=== PATIENT | female | born 1980 | race Caucasian/White ===

== ENCOUNTER 2023-01-25 18:50 | Emergency (ER) | payer BC ==
[2023-01-25 19:12] VITALS: BP 99/62; PULSE 100; RESP 16; TEMP 97.8; BMI 26.7
[2023-01-25] MEDS ORDERED: ALBUTEROL SO4 2.5/IPRATROPIUM 0.5 INH SOL 3 ML VIAL.NEB. NEB ONE (19:14)
[2023-01-25] MEDS ORDERED: ALBUTEROL SO4 2.5/IPRATROPIUM 0.5 INH SOL 3 ML VIAL.NEB. NEB STA (19:19)
== END 2023-01-25 19:33 | disposition home or self-care (01) ==
LOC: FER 18:50
PROC: 3E0F7GC Introduction of Other Therapeutic Substance into Respiratory Tract, Via Natural or Artificial Opening (ICD-10-PCS; principal; 2023-01-25)
DX: R06.02 Shortness of breath (principal); J45.21 Mild intermittent asthma with (acute) exacerbation
CPT/HCPCS: 99283-25

== ENCOUNTER 2023-12-07 16:27 | Emergency (ER) | payer BC ==
[2023-12-07 16:50] VITALS: BP 100/62; PULSE 96; RESP 16; TEMP 98.6; BMI 30.1
[2023-12-07 17:20] LABS: HCG,QUALITATIVE URINE Negative
[2023-12-07] MEDS ORDERED: ACETAMINOPHEN INJECTION 100 ML IVPB ONE (17:54)
[2023-12-07] MEDS: SODIUM CHLORIDE 0.9% 500 ML INFUS.BAG IV ONE (18:48)
[2023-12-07] MEDS: ACETAMINOPHEN 1000 MG/100 ML BAG IVPB ONE (18:48)
[2023-12-07] MEDS ORDERED: KETOROLAC TROMETHAMINE 15 MG/ML VIAL ONE (19:07)
[2023-12-07 19:09] LABS: HEMATOCRIT 35.6 % (32.4-45.2); HEMOGLOBIN 11.4 G/dL (10.7-15.3); MCH 28.7 pg (25.7-33.7); MCHC 32.1 g/dl (32.0-36.0); MEAN CELL VOLUME 89.2 fl (80-96); MEAN PLT VOLUME 7.3 fl (7.5-11.1); PLATELET COUNT 480.8 10^3/uL (134-434); RBC 3.99 10^6/uL (3.60-5.2); RDW 14.8 % (11.6-15.6); WHITE BLOOD COUNT 8.3 10^3/uL (4.0-10.8)
[2023-12-07] MEDS: KETOROLAC TROMETHAMINE 15 MG/ML VIAL IVPUSH ONE (19:11)
[2023-12-07 19:19] LABS: INR 0.89 (0.83-1.09); PROTHROMBIN TIME (PATIENT) 10.2 SEC (9.7-13.0)
[2023-12-07 19:21] LABS: ACTIVATED PTT 29.3 SECONDS (25.2-36.5)
[2023-12-07 19:32] LABS: PLATELET ESTIMATE SLT INCREASE
[2023-12-07 20:27] LABS: ALBUMIN 3.4 g/dl (3.4-5.0); BILIRUBIN,TOTAL 0.3 mg/dl (0.2-1); CALCIUM 8.1 mg/dl (8.5-10.1); CREATININE 0.7 mg/dl (0.6-1.3); TOT PROT 5.8 g/dl (6.4-8.2)
== END 2023-12-07 20:50 | disposition home or self-care (01) ==
LOC: FER 16:27
PROC: 3E033NZ Introduction of Analgesics, Hypnotics, Sedatives into Peripheral Vein, Percutaneous Approach (ICD-10-PCS; principal; 2023-12-07)
PROC: 3E0333Z Introduction of Anti-inflammatory into Peripheral Vein, Percutaneous Approach (ICD-10-PCS; 2023-12-07)
DX: N83.201 Unspecified ovarian cyst, right side (principal); N83.202 Unspecified ovarian cyst, left side; N93.9 Abnormal uterine and vaginal bleeding, unspecified; R10.30 Lower abdominal pain, unspecified
CPT/HCPCS: 36415; 76830-TC; 80053; 81003; 81015; 84703; 85027; 85610; 85730; 86850; 86900; 86901; 87070; 87086; 87205; 99284-25; J0131